=== PATIENT | male | born 1985 | race Two or more races ===

== ENCOUNTER 2021-07-08 15:21 | Emergency (ER) | payer MEDICAID ==
[~2021-07-08] VITALS: Ht 170.2 cm; Wt 75.0 kg
[~2021-07-08 15:21] MED LIST: NOCURR
[2021-07-08 16:45] LABS: COVID AG,FIA SOURCE NASAL SWAB
[2021-07-08 18:06] VITALS: BP 106/70
== END 2021-07-08 18:12 | disposition home or self-care (01) ==
LOC: EMS 15:24
DX: B34.9 Viral infection, unspecified (principal); R91.1 Solitary pulmonary nodule; F17.210 Nicotine dependence, cigarettes, uncomplicated; Z91.030 Bee allergy status; Z20.822 Contact with and (suspected) exposure to COVID-19
CPT/HCPCS: 71045; 87426; 99284; U0003

== ENCOUNTER 2023-07-15 21:24 | Emergency (ER) | payer MEDICAID ==
[~2023-07-15] VITALS: Ht 170.2 cm; Wt 90.9 kg
[2023-07-15 21:30] VITALS: TEMP 97.9
[2023-07-15] MEDS ORDERED: CLOTRIMAZOLE 1% 15 GM CREAM TP ONE (22:45)
[2023-07-15] MEDS ORDERED: CLOT15CR29 TP (23:03)
[2023-07-15] MEDS ORDERED: DIPH25CA85 PO (23:03)
[2023-07-15 23:15] VITALS: BP 125/64; PULSE 71; RESP 17
== END 2023-07-15 23:30 | disposition home or self-care (01) ==
LOC: EMS 21:24
DX: B35.9 Dermatophytosis, unspecified (principal); E11.9 Type 2 diabetes mellitus without complications; E78.00 Pure hypercholesterolemia, unspecified; Z87.891 Personal history of nicotine dependence; Z91.030 Bee allergy status
CPT/HCPCS: 99282; Z7502; Z7610

== ENCOUNTER 2024-10-17 03:40 | Emergency (ER) | payer MEDICAID, OTHER ==
[~2024-10-17] VITALS: Ht 170.2 cm; Wt 83.2 kg
[~2024-10-17 03:40] MED LIST changes: +CLOT15CR29 TP; +DIPH25CA85 PO
[2024-10-17 03:50] VITALS: TEMP 98
[2024-10-17] MEDS: PROPARACAINE HCL 0.5% 15 ML OPHTHALMIC SOLUTION OS ONE (05:32)
[2024-10-17] MEDS: ERYTHROMYCIN 0.5% 3.5 GM TUBE OPHTHALMIC OINTMENT OS ONE (05:59)
[2024-10-17 06:00] VITALS: BP 125/79; PULSE 85; RESP 18; O2SAT 96
== END 2024-10-17 06:02 | disposition home or self-care (01) ==
LOC: EMS 03:40
DX: T15.12XA Foreign body in conjunctival sac, left eye, initial encounter (principal); E11.9 Type 2 diabetes mellitus without complications; E78.00 Pure hypercholesterolemia, unspecified; H57.12 Ocular pain, left eye; Z91.030 Bee allergy status; W44.8XXA Other foreign body entering into or through a natural orifice, initial encounter; Y93.89 Activity, other specified; Y92.89 Other specified places as the place of occurrence of the external cause; Y99.8 Other external cause status
CPT/HCPCS: 70480; 99284; J9035; Z7502; Z7610